=== PATIENT | female | born 1990 | race African-American/Black ===

== ENCOUNTER 2016-08-04 10:15 | Emergency (ER) | payer OTHER ==
[2016-08-04] MEDS ORDERED: VITA100066 PO (10:40)
[2016-08-04] MEDS ORDERED: CELE-19 PO (10:40)
[2016-08-04 11:12] LABS: BASO # 0.1 K/mm3 (0.0-0.2); BASO % 0.6 % (0.0-1.0); EOS # 0.4 K/mm3 (0.0-0.50); EOS % 3.3 % (0.0-3.0); LARGE UNSTAINED CELL # 0.2 K/mm3 (0.0-0.4); LARGE UNSTAINED CELL % 1.5 % (0.0-4.0); LYMPH # 2.8 K/mm3 (1.5-6.5); LYMPH % 23.1 % (24.0-44.0); MEAN CORPUSCULAR HEMOGLOBIN 26.6 pg (27.0-33.0); MEAN CORPUSCULAR HGB CONC 33.5 g/dl (32.0-36.5); MEAN CORPUSCULAR VOLUME 79.4 fl (80.0-96.0); MONO # 0.7 K/mm3 (0.0-0.8); MONO % 5.8 % (0.0-5.0); NEUTROPHILS # 7.6 K/mm3 (1.8-7.7); NEUTROPHILS % 65.7 % (36.0-66.0); PLATELET COUNT, AUTOMATED 355 k/mm3 (150-450); RED CELL DISTRIBUTION WIDTH 12.6 % (11.5-14.5); WHITE BLOOD COUNT 11.5 K/mm3 (4.0-10.0)
[2016-08-04 11:13] LABS: INR 1.06
[2016-08-04 11:15] LABS: CONTROL LINE HCG INT CTR LINE PRESENT
[2016-08-04] MEDS ORDERED: NS 500 ML IV ONE (11:15)
[2016-08-04 11:26] LABS: ALBUMIN 3.7 GM/DL (3.2-5.2); ALBUMIN/GLOBULIN RATIO 0.97 (1.00-1.93); ALKALINE PHOSPHATASE 92 U/L (45-117); ALT/SGPT 20 U/L (12-78); ANION GAP 6 MEQ/L (8-16); AST/SGOT 12 U/L (15-37); BILIRUBIN,DIRECT < 0.1 MG/DL (0.0-0.2); BILIRUBIN,TOTAL 0.3 MG/DL (0.2-1.0); BLOOD UREA NITROGEN 12 MG/DL (7-18); CALCIUM LEVEL 9.3 MG/DL (8.5-10.1); CARBON DIOXIDE LEVEL 26 MEQ/L (21-32); CHLORIDE LEVEL 108 MEQ/L (98-107); CREATININE FOR GFR 0.94 MG/DL (0.55-1.02); GLOMERULAR FILTRATION RATE > 60.0 (>60); GLUCOSE, FASTING 102 MG/DL (70-105); POTASSIUM SERUM 3.9 MEQ/L (3.5-5.1); SODIUM LEVEL 140 MEQ/L (136-145); TOTAL PROTEIN 7.5 GM/DL (6.4-8.2)
[2016-08-04 11:31] LABS: FREE T4 1.15 NG/DL (0.76-1.46)
[2016-08-04] MEDS ORDERED: ACETAMINOPHEN 325 MG TAB PO ONE (11:45)
[2016-08-04] MEDS ORDERED: ISOVUE-370 76% 100ML VIAL (Q9967) As Ordered ONE (11:50)
--- NOTE | 2016-08-04 12:25 | REP ---
Chest CT with IV contrast, CT pulmonary angiography: There are no comparisons. There are no emboli in the pulmonary trunk or central pulmonary arteries. There are no emboli in the pulmonary lobe or segment branches. There are no acute infiltrates or effusions. There are no masses. There is no mediastinal, hilar or axillary adenopathy. The thoracic aorta is unremarkable. Cardiac size is normal. There is no pericardial effusion. The visualized upper abdominal contents are unremarkable. Impression: There are no pulmonary emboli. Negative CT study of the chest. Signed by Jamel Dumont MD 08/04/2016 12:16 P
--- NOTE | 2016-08-04 12:35 | REP ---
Right lower extremity Duplex Doppler venous ultrasound: Real time compression and duplex Doppler interrogation of the right lower extremity deep venous system is performed. The right common femoral, superficial femoral and popliteal veins are fully compressible with transducer pressure and demonstrate normal spontaneous and phasic flow, without evidence of deep venous thrombosis. Impression: No evidence of deep venous thrombosis of the right lower extremity femoral popliteal venous system. Signed by Jamel Levy MD 08/04/2016 12:27 P
--- NOTE | 2016-08-04 12:58 | REP ---
Chest one-view HISTORY: Chest pain Comparison: None The lungs are clear. The heart is normal in size. The pulmonary vasculature is normal in appearance. Impression: No acute disease. Signed by Amrit Arzate MD 08/04/2016 12:49 P
[2016-08-04 13:29] VITALS: BP 151/73
--- NOTE | 2016-08-05 08:16 | ECGEPIP ---
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
== END 2016-08-04 13:47 | disposition home or self-care (01) ==
LOC: M ED 11:13
DX: R07.9 Chest pain, unspecified (principal); R25.2 Cramp and spasm; Z86.718 Personal history of other venous thrombosis and embolism; Z79.899 Other long term (current) drug therapy; Z88.6 Allergy status to analgesic agent; Z88.5 Allergy status to narcotic agent
CPT/HCPCS: 36415; 71010; 71275; 80048; 80076; 82550; 82553; 84439; 84443; 84703; 85025; 85379; 85610; 85730; 87040; 93005; 93041; 93971; 94760; 96360; 96361; 99285; Q9967

== ENCOUNTER 2016-10-14 19:00 | Emergency (ER) | payer OTHER ==
[~2016-10-14] VITALS: Ht 167.6 cm; Wt 86.8 kg
[~2016-10-14 19:00] MED LIST: CELE1CAP4 PO; VITA100066 PO
[2016-10-14 19:02] VITALS: BP 143/77
[2016-10-14] MEDS ORDERED: NS 1,000 ML IV SCH (20:30)
[2016-10-14] MEDS ORDERED: diphenhydrAMINE INJ 50MG/ML VIAL (J1200) IV ONE (20:30)
[2016-10-14] MEDS ORDERED: METOCLOPRAMIDE INJ 10MG/2ML VIAL (J2765) IV ONE (20:30)
[2016-10-14] MEDS ORDERED: KETOROLAC 30 MG/ML VIAL (J1885) IV ONE (20:30)
[2016-10-14] MEDS ORDERED: CYCL10TA PO (21:30)
== END 2016-10-14 22:11 | disposition home or self-care (01) ==
LOC: M ED 19:00
DX: G43.909 Migraine, unspecified, not intractable, without status migrainosus (principal); R11.2 Nausea with vomiting, unspecified; J45.909 Unspecified asthma, uncomplicated; M54.5 Low back pain; Z88.5 Allergy status to narcotic agent; Z88.6 Allergy status to analgesic agent; Z88.8 Allergy status to other drugs, medicaments and biological substances
CPT/HCPCS: 96374; 96375; 99283; J1200; J1885; J2765

== ENCOUNTER 2017-04-05 23:34 | Emergency (ER) | payer OTHER ==
[2017-04-06] MEDS: NS 1,000 ML IV ×2 (00:41)
[2017-04-06 00:43] LABS: BASO # 0.1 10^3/uL (0.0-0.2); BASO % 0.6 % (0.0-1.0); EOS # 0.3 10^3/uL (0.0-0.50); EOS % 2.5 % (0.0-3.0); HEMATOCRIT 39.6 % (36.0-47.0); HEMOGLOBIN 13.4 g/dl (12.0-16.0); IMMATURE GRANULOCYTE % 0.3 % (0-0); LYMPH # 3.4 10^3/uL (1.5-6.5); LYMPH % 28.6 % (24.0-44.0); MEAN CORPUSCULAR HEMOGLOBIN 26.9 pg (27.0-33.0); MEAN CORPUSCULAR HGB CONC 33.8 g/dl (32.0-36.5); MEAN CORPUSCULAR VOLUME 79.4 fl (80.0-96.0); MONO # 1.2 10^3/uL (0.0-0.8); NEUTROPHILS # 6.8 10^3/uL (1.8-7.7); PLATELET COUNT, AUTOMATED 389 10^3/uL (150-450); RED BLOOD COUNT 4.99 10^6/uL (4.00-5.40); RED CELL DISTRIBUTION WIDTH 12.2 % (11.5-14.5); WHITE BLOOD COUNT 11.8 10^3/uL (4.0-10.0)
[2017-04-06 00:54] LABS: KETONE, URINE AUTO RFX NEGATIVE (NEGATIVE); LEUKOCYTE ESTERASE UR AUTO RFX 3+ (NEGATIVE); NITRITE, URINE AUTO RFX NEGATIVE (NEGATIVE); RBC, URINE AUTO RFX 129 /HPF (0-3); SQUAM EPITHELIAL CELL UR AURFX 2 /HPF (0-6); WBC, URINE AUTO RFX 45 /HPF (0-3)
[2017-04-06 01:05] LABS: ALBUMIN 3.9 GM/DL (3.2-5.2); ALBUMIN/GLOBULIN RATIO 0.98 (1.00-1.93); ALKALINE PHOSPHATASE 106 U/L (45-117); ALT/SGPT 22 U/L (12-78); ANION GAP 4 MEQ/L (8-16); AST/SGOT 20 U/L (7-37); BILIRUBIN,TOTAL 0.3 MG/DL (0.2-1.0); BLOOD UREA NITROGEN 10 MG/DL (7-18); CALCIUM LEVEL 9.3 MG/DL (8.5-10.1); CARBON DIOXIDE LEVEL 32 MEQ/L (21-32); CHLORIDE LEVEL 105 MEQ/L (98-107); CREATININE FOR GFR 0.88 MG/DL (0.55-1.30); GLOMERULAR FILTRATION RATE > 60.0 (>60); GLUCOSE, FASTING 111 MG/DL (70-100); POTASSIUM SERUM 4.1 MEQ/L (3.5-5.1); SODIUM LEVEL 141 MEQ/L (136-145); TOTAL PROTEIN 7.9 GM/DL (6.4-8.2)
[2017-04-06] MEDS: CIPROFLOXACIN 500 MG TAB PO ×2 (01:32)
[2017-04-06] MEDS: traMADol 50 MG TAB PO ×2 (01:33)
[2017-04-06] MEDS: KETOROLAC 30 MG/ML VIAL (J1885) IV ×2 (01:36)
== END 2017-04-06 02:03 | disposition home or self-care (01) ==
LOC: M ED 23:34
DX: N10 Acute pyelonephritis (principal); M54.9 Dorsalgia, unspecified; Z88.6 Allergy status to analgesic agent; Z88.5 Allergy status to narcotic agent
CPT/HCPCS: J1885

== ENCOUNTER 2018-01-29 18:36 | Emergency (ER) | payer OTHER, SELFPAY ==
[~2018-01-29] VITALS: Ht 167.6 cm; Wt 84.1 kg
[~2018-01-29 18:36] MED LIST changes: +CIPR-249 PO; +CYCL10TA PO; +TRAM50TA2 PO
[2018-01-29 20:33] VITALS: BP 119/71
--- NOTE | 2018-01-29 20:40 | REPVR ---
EXAM: US Abdomen Limited EXAM DATE/TIME: 01/29/2018 7:43 PM CLINICAL HISTORY: 27 years old, female; Signs and symptoms; Mass, lump, or swelling; Other: Lt CVA; Additional info: Lump l CVA TECHNIQUE: Real-time ultrasound of the left mid back with image documentation. Examination is focused on the region of clinical interest. Comparison is made to the right mid back. COMPARISON: No relevant prior studies available. FINDINGS: Normal-appearing subcutaneous tissues and posterior paraspinal muscles is identified in the area of concern in the left mid back. No focal abnormality is identified in the area of concern. At the medial inferior edge of the area in question there is a round slightly echogenic nodule measuring 1.2 cm x 1.3 cm x 0.9 cm in diameter within the subcutaneous fat. The findings are are consistent with a subcutaneous lipoma. This could be further evaluated with CT or MRI as clinically indicated. IMPRESSION: 1. No abnormality in the region of palpable concern. 2. Round, slightly echogenic nodule measuring 1.2 cm x 1.3 cm x 0.9 cm in the subcutaneous tissues of the medial lower back cyst with incidental subcutaneous lipoma. This could be further evaluated with CT or MRI as clinically indicated. Electronically signed by: Davin Cazares On 01/29/2018 20:39:46 PM
--- NOTE | 2018-01-31 15:04 | ED PDOC ---
Post-Departure Follow-Up certified letter sent to pt. please share formal read of us. pt needs fu. no pcp listed. if pcp fax report. if no pcp refer to [facility] and fax there. Jillian Anguiano MD Jan 31, 2018 15:04
== END 2018-01-29 20:37 | disposition home or self-care (01) ==
LOC: M ED 18:36
DX: D17.1 Benign lipomatous neoplasm of skin and subcutaneous tissue of trunk (principal); Z88.5 Allergy status to narcotic agent; Z88.8 Allergy status to other drugs, medicaments and biological substances; Z87.891 Personal history of nicotine dependence